=== PATIENT | male | born 1965 | race Two or more races ===

== ENCOUNTER 2024-05-14 06:15 | Inpatient (IN) | payer BC ==
[~2024-05-14] VITALS: Ht 175.3 cm; Wt 114.0 kg
[2024-05-14] MEDS: ceFAZolin 2 GM/D5W100ml 100 ML IV ONE (05:32)
[~2024-05-14 06:15] MED LIST: HYDR12.59 PO; LOSA-535 PO
[2024-05-14] MEDS: ROPIVACAINE 0.5% (5MG/ML) 20ML AMPULE IJ ONE (06:16)
[2024-05-14] MEDS ORDERED: MIDAZOLAM HCL 2MG/2ML 2ml VIAL (1mg/ml) ONE (06:20)
[2024-05-14] MEDS ORDERED: fentaNYL CITRATE 100 MCG/2 ML VL ONE (06:37)
[2024-05-14] MEDS ORDERED: PROPOFOL 10 MG/ML 20 ML IV ONE (06:37)
[2024-05-14] MEDS ORDERED: ROCURONIUM 10MG/ML 10ML VIAL IV ONE (08:02)
[2024-05-14] MEDS ORDERED: ONDANSETRON HCL 4 MG/2 ML VIAL ONE (08:13)
[2024-05-14] MEDS ORDERED: DexAMETHasone SOD PHOS 10MG/1ML VIAL INJ ONE ×2 (08:13→08:20)
[2024-05-14] MEDS ORDERED: SUGAMMADEX 200mg/2ml Vial (100MG/ML) IV ONE (08:35)
[2024-05-14] MEDS ORDERED: LIDOCAINE 2% (LOCAL ANESTH.) PF 5ml SDV ONE (08:39)
--- NOTE | 2024-05-14 09:19 | DVH ---
CLINICAL INDICATION: pain TECHNIQUE: 1 radiographic views of the right hip were obtained. Comparison: None FINDINGS/IMPRESSION: Status post right hip arthroplasty.
--- NOTE | 2024-05-14 09:43 | DVHOP2 ---
Operative Report - 2 Report Details Date: 05/14/24 Preop Diagnosis: Right hip degenerative arthritis Postop Diagnosis: Right hip degenerative arthritis Surgeon: Yohannes Javed MD Animal Keeper Head: Nissa PALACIOS Anesthesiologist: Taya Ricketts CRNA Anesthesia: Regional Drains: Aristeo closed wound suction Implant: DonJoy origin stem size 12, minus four neck length, 36 delta head, 52 acetabular shell with flat liner Consent: The patient was informed of the risks and benefits of the procedure. These include but are not limited to complications of anesthesia, postoperative infection, incomplete relief of symptoms, recurrence of symptoms, damage to blood vessels, nerves and tendons, deep venous thrombosis, pulmonary embolism and possible need for repeat surgery in the future. Complications: None Estimated Blood Loss: 250 cc Fluids: See anesthesia record Findings: Denuded cartilage with eburnated bone right hip Indications for Surgery: Right hip degenerative arthritis with severe pain and functional impairment despite nonoperative management Name of Procedure Performed Right total hip arthroplasty Procedure Details Procedure Details: The patient was brought to the operating room and given spinal anesthetic with adequate analgesia obtained. The patient was positioned lateral decubitus with the operative side up, stabilized with hip positioners. Axillary roll applied and lower extremities well-padded. Preop patient received IV Ancef, cefepime and IV tranexamic acid. Surgical timeout was performed verifying patient, laterality and procedure. The hip and lower extremity were prepped and draped in sterile fashion. Incision was made over the greater trochanter. Subcutaneous dissection and hemostasis were performed with Bovie and aqua mantis. I identified the fascia which was incised with Bovie and Charnley retractor inserted. I identified the gluteus medius that was split at the junction of its anterior and middle thirds with Bovie then incised off the anterior greater trochanter. I incised the anterior gluteus minimus which was elevated off the capsule. I elevated the reflected head of the rectus. I then performed anterior capsulectomy with Bovie. I extended capsular incision posterior medially and superior laterally. The head was dislocated. Femoral neck cut was made with saw and head removed. Head diameter was calipered on the back table. I adjusted retractors to expose the acetabulum. I circumferentially removed labral tissue with Bovie. I removed foveal tissue with Bovie, curette and rongeur. I then began reaming sequentially paying attention to inclination and version as I went. I trialed which was stable so acetabular implant was brought into the field and tapped into the acetabulum with good fixation achieved. I then brought up the flat liner which was spun to make sure there was no soft tissue entrapment then tapped in and stability verified. I then brought my attention to the proximal femur. The leg was placed in the sterile bag anteriorly. I cleaned up soft tissue at the greater trochanter shoulder with Bovie. I then used a rongeur to clip the lateral neck. I then used a box osteotome, canal finder and lateralizing rasp. I sequentially broached to size 12. I trialed with a [0] neck length and [36] head which was stable. Intraoperative AP pelvis x-ray was obtained to verify length, offset and implant size. The hip was dislocated. Neck and head trial removed. I revised the femoral neck cut with calcar planer. Broach was removed. I tapped in the femoral implant with good fixation achieved. I decided to use the minus four neck length based on x-rays. I 1st trialed with a minus four confirming stability. I cleaned and dried the Fowler taper and tapped on the ceramic head. I irrigated with xperience. I placed a 2 grams of vancomycin in the deep and superficial wound. I repaired the minimus and medius to the anterior greater trochanter with #[5] FiberWire in running fashion . I oversewed the repair with 0 Vicryl. I repaired the fascia with #1 Ethibond in terrupted [id number]. Deep subcutaneous tissue was closed with 0 Vicryl. Superficial subcutaneous tissue was closed with 2-0 Vicryl. The skin was closed with brigette. I then applied the Aristeo closed wound suction. Patient tolerated the procedure well and was brought to the recovery room in stable condition. Condition Stable Disposition Still a Patient YOHANNES JAVED MD May 14, 2024 09:43
[2024-05-14] MEDS ORDERED: ONDANSETRON HCL 4 MG/2 ML VIAL IV PRN (09:45)
[2024-05-14 09:57] VITALS: PULSE 65; RESP 14; O2SAT 100
[2024-05-14] MEDS: LOSARTAN POTASSIUM 50 MG TAB PO SCH (10:00)
[2024-05-14] MEDS ORDERED: HYDROmorphone HCL 2 MG/ML VL/or syr IV PRN (10:30)
[2024-05-14] MEDS ORDERED: ePHEDrine SULFATE 50 MG/ML AMP IV PRN (10:30)
[2024-05-14] MEDS: ONDANSETRON HCL 4 MG/2 ML VIAL IV ONE (10:30)
[2024-05-14] MEDS: METOCLOPRAMIDE HCL 5MG/ml INJ 2ml VIAL IV ONE (10:30)
[2024-05-14] MEDS ORDERED: fentaNYL CITRATE 100 MCG/2 ML VL IV PRN (10:30)
[2024-05-14] MEDS ORDERED: hydrALAZINE HCL 20 MG/ML VL IV PRN (10:30)
--- NOTE | 2024-05-14 10:37 | DVH ---
CLINICAL INDICATION: postop TECHNIQUE: 1 radiographic views of the l were obtained. Comparison: None FINDINGS/IMPRESSION: There is no evidence of acute fracture or dislocation. Status post right hip arthroplasty. 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
[2024-05-14] MEDS: ACETAMINOPHEN IV 1000 MG/100ML (10MG/ML) IV ONE (10:59)
[2024-05-14] MEDS: SODIUM CHLORIDE 0.9% 1,000 ML IV SCH (11:30)
[2024-05-14] MEDS: ACETAMINOPHEN 325 MG TAB PO SCH (12:00)
[2024-05-14] MEDS: KETOROLAC TROMETH 30 MG/ML 1ML VIAL IV SCH (12:00)
[2024-05-14] MEDS: oxyCODONE HCL 5MG TAB PO PRN (12:54)
[2024-05-14] MEDS: PREGABALIN 25 MG CAP PO SCH (13:23)
[2024-05-14] MEDS: ceFAZolin 2 GM/D5W50ml 50 ML IV SCH ×2 (14:04→23:35)
[2024-05-14 15:27] VITALS: BP 136/68; PULSE 102; RESP 19; TEMP 97.7; O2SAT 95
[2024-05-14 15:38] VITALS: BP 136/68; PULSE 102; PULSE 78; RESP 18; RESP 19; TEMP 97.7; O2SAT 95; O2SAT 97
[2024-05-14 17:00] VITALS: BP 147/76; PULSE 98; RESP 19; TEMP 97.9; O2SAT 95
[2024-05-14 21:00] VITALS: BP 107/60; PULSE 103; RESP 17; TEMP 99.2; O2SAT 95
[2024-05-15 01:00] VITALS: BP 117/64; PULSE 89; RESP 17; TEMP 98.7; O2SAT 95
[2024-05-15 05:00] VITALS: BP 122/67; PULSE 83; RESP 17; TEMP 98; O2SAT 95
[2024-05-15 06:21] LABS: Basophils # (auto) 0 10 ^3/uL (0-0.2); Eosinophils # (auto) 0 10 ^3/uL (0-0.8); Hematocrit 34.6 % (41.0-53.0); Hemoglobin 11.9 g/dL (13.5-17.5); Lymphocytes # (auto) 1.1 10 ^3/uL (0.4-5.4); Mean Corpuscular Hemoglobin 29.5 pg (28.0-32.0); Mean Corpuscular Hgb Conc. 34.4 g/dL (32.0-36.0); Mean Corpuscular Volume 85.7 fL (80.0-100.0); Monocytes # (auto) 0.7 10 ^3/uL (0-1.3); Monocytes % (auto) 5.4 % (0.0-12.0); Neutrophils # (auto) 11.6 10 ^3/uL (1.6-8.6); Neutrophils % (auto) 86.6 % (37.0-80.0); Platelet Count (auto) 203 10^3/uL (140-450); Red Blood Cells 4.04 10^6/uL (4.5-5.90); Red Cell Distribution Width 13.6 % (11.8-14.3); White Blood Cell 13.4 10^3/uL (4.4-10.8)
[2024-05-15 06:35] LABS: Potassium 4.3 mmol/L (3.5-5.1); Sodium 138 mmol/L (136-145)
[2024-05-15 06:36] LABS: Anion Gap 7 (5-15); Carbon Dioxide 24 mmol/L (20-31)
[2024-05-15 06:41] LABS: BUN/Creatinine Ratio 17.4 (10.0-20.0); Blood Urea Nitrogen 16 mg/dL (9-23)
[2024-05-15 06:46] LABS: Chloride 107 mmol/L (98-107); Glucose 170 mg/dL (74-106)
[2024-05-15 08:00] VITALS: PULSE 78; RESP 18; O2SAT 97
[2024-05-15] MEDS: APIXABAN 2.5 MG TAB PO SCH (09:12)
[2024-05-15] MEDS: oxyCODONE HCL 5MG TAB PO PRN (09:13)
[2024-05-15 09:30] VITALS: BP 143/77; PULSE 78; RESP 18; TEMP 98.6; O2SAT 97
--- NOTE | 2024-05-15 11:38 | DVHDS2 ---
Discharge Summary Date of Admission May 14, 2024 at 09:46 Date of Discharge: May 15, 2024 Labs/Diagnostic Data: Laboratory Results Test 05/15/24 04:16 White Blood Count 13.4 10^3/uL (4.4-10.8) Red Blood Count 4.04 10^6/uL (4.5-5.90) Hemoglobin 11.9 g/dL (13.5-17.5) Hematocrit 34.6 % (41.0-53.0) Mean Corpuscular Volume 85.7 fL (80.0-100.0) Mean Corpuscular Hemoglobin 29.5 pg (28.0-32.0) Mean Corpuscular Hemoglobin Concent 34.4 g/dL (32.0-36.0) Red Cell Distribution Width 13.6 % (11.8-14.3) Platelet Count 203 10^3/uL (140-450) Mean Platelet Volume 9.4 fL (6.9-10.8) Neutrophils (%) (Auto) 86.6 % (37.0-80.0) Lymphocytes (%) (Auto) 8.0 % (10.0-50.0) Monocytes (%) (Auto) 5.4 % (0.0-12.0) Eosinophils (%) (Auto) 0.0 % (0.0-7.0) Basophils (%) (Auto) 0.0 % (0.0-2.0) Neutrophils # (Auto) 11.6 10 ^3/uL (1.6-8.6) Lymphocytes # (Auto) 1.1 10 ^3/uL (0.4-5.4) Monocytes # (Auto) 0.7 10 ^3/uL (0-1.3) Eosinophils # (Auto) 0 10 ^3/uL (0-0.8) Basophils # (Auto) 0 10 ^3/uL (0-0.2) Nucleated Red Blood Cells 0.0 % Sodium Level 138 mmol/L (136-145) Potassium Level 4.3 mmol/L (3.5-5.1) Chloride Level 107 mmol/L (98-107) Carbon Dioxide Level 24 mmol/L (20-31) Anion Gap 7 (5-15) Blood Urea Nitrogen 16 mg/dL (9-23) Creatinine 0.92 mg/dL (0.700-1.30) Glomerular Filtration Rate Calc 96 mL/min (>90) BUN/Creatinine Ratio 17.4 (10.0-20.0) Serum Glucose 170 mg/dL (74-106) Calcium Level 9.0 mg/dL (8.7-10.4) Other Laboratory Tests 05/15/24 04:16 Brief Hx & Hospital Course: Patient was brought to the hospital yesterday to undergo a right total hip arthroplasty, he tolerated the procedure well without complications and was kept overnight for postoperative observation. Patient has remained medically stable denying any overnight events and reports some postoperative hip pain that is being well managed with the help of pain medication. Patient reports that he was able to get up and walk with the help of physical therapy and was able to get down to the nurse's station and back to his bed. Patient is otherwise feeling well denying any other complaints or concerns during my evaluation and would like to go home. Condition at Discharge: Stable Final Diagnosis/Problems List Right hip degenerative arthritis Discharge Disposition: Home Discharge Instruct/Medications Diet: Regular Activity: See Comment Activity comment: Advised patient to remain weight-bearing as tolerated with the assistance of a walker Follow Up/Referral: I instructed the patient to follow up with our office in 10-14 days for his 1st postoperative evaluation Medications: Rx sent via our outpatient EMR system Discharge Statement: "Patient was advised to return to the ER or call 911 if any headaches, dizziness, shortness of breath, chest pain, abdominal pain, bleeding, fevers, or worsening of medical condition. Patient was counseled about treatment plan, medications, possible side effects, patientverbalized understanding. All questions were answered to the best of my ability. This discharge took greater then 30 minutes in planning, reviewing documentation, counseling the patient, and discussing with other team members." ASSESSMENT ASSESSMENT Assessment Right hip degenerative arthritis ELLI PERKINS May 15, 2024 11:38
--- NOTE | 2024-05-15 11:42 | DVHPN2 ---
Progress Note - Dictate Date Seen: May 15, 2024 Medical Necessity Reason Pt with a Central, PICC or Fol: No Subjective Patient was lying comfortably in bed during my evaluation and reports some postoperative hip pain that is being well managed with the help of pain medication. Patient reports that he was able to get up and walk with the help of physical therapy and his walker and was able to get down to the nurse's station and back to his bed with minimal pain. Patient is otherwise feeling well denying any other complaints or concerns during my evaluation and would like to go home. vital signs Vital Sign Date Time Temp Pulse Resp B/P (MAP) Pulse Ox O2 Delivery O2 Flow Rate FiO2 05/15/24 11:30 98.2 05/15/24 09:30 78 18 143/77 (99) 97 05/15/24 08:00 Room Air* 0 21 Total Intake and Output 05/14/24 05/14/24 05/15/24 15:00 23:00 07:00 Intake Total 0 ml 850 ml Output Total 700 ml Balance 0 ml 150 ml medications Current Medications Medications Dose Ordered Sig/Sue Route Start Time Stop Time Status Last Admin Dose Admin Losartan Potassium 100 mg DAILY PO 05/14/24 10:00 05/15/24 09:12 100 MG Pregabalin 50 mg BID PO 05/14/24 10:00 05/15/24 09:12 50 MG Apixaban 2.5 mg BID PO 05/15/24 10:00 06/19/24 09:59 05/15/24 09:12 2.5 MG Sodium Chloride 1,000 ml @ 125 mls/hr Q8H IV 05/14/24 11:30 05/15/24 09:16 125 MLS/HR Acetaminophen 650 mg Q6HP PO 05/14/24 12:00 05/15/24 11:30 650 MG Ketorolac Tromethamine 15 mg Q6HR IV 05/14/24 12:00 05/19/24 11:59 05/15/24 11:30 15 MG Ondansetron HCl 4 mg Q4HP PRN IV 05/14/24 09:45 Oxycodone HCl 5 mg Q4HP PRN PO 05/14/24 11:30 05/14/24 12:54 5 MG Oxycodone HCl 10 mg Q4HP PRN PO 05/14/24 11:30 05/15/24 09:13 10 MG Cefazolin Sodium/ Dextrose 50 ml @ 50 mls/hr Q8HR IV 05/15/24 23:30 05/16/24 00:29 05/14/24 23:35 50 MLS/HR objective A&O x4 in no acute distress Hip range of motion grossly limited with pain on movement Aristeo dressing clean, dry, intact, and maintaining suction No distal edema or calf tenderness to palpation Neurovascularly intact with cap refill less than 2 seconds laboratory and microbiology Laboratory Tests 05/15/24 04:16 Test 05/15/24 04:16 Range/Units Serum Glucose 170 H 74-106 mg/dL Assessment/Plan Patient to be discharged home and advised to remain weight-bearing as tolerated with the assistance of a walker. I also shared with the patient to maintain his dressings clean, dry, intact, and maintaining suction to call our office if he has any questions or concerns. I advised the patient to follow up with our office in 10-14 days for his 1st postoperative evaluation. Rx sent via our outpatient EMR system. He understood and agreed. Plan discussed with: Patient ELLI PERKINS May 15, 2024 11:42
[2024-05-15 13:24] VITALS: BP 140/70; PULSE 90; RESP 18; TEMP 98.3; O2SAT 97
[2024-05-15 16:17] VITALS: BP 139/82; TEMP 36.8
== END 2024-05-15 17:30 | disposition home or self-care (01) | DRG 470 ==
LOC: SUR 06:15 → OVERFLOW 09:46 → WEST WING 15:40
PROVIDERS: ADMIT Orthopaedic Surgery; ATTEND Orthopaedic Surgery
PROC: 0SR90JZ Replacement of Right Hip Joint with Synthetic Substitute, Open Approach (ICD-10-PCS; principal; 2024-05-14 07:23)
DX: M16.11 Unilateral primary osteoarthritis, right hip (principal)
CPT/HCPCS: 36415; 72170; 73502; 80048; 85025; 86850; 86900; 86901; 97110; 97116; 97163; A4565; G0378; J0131; J1100; J1885; J2003; J2250; J2405; J2704

== ENCOUNTER 2025-02-04 08:23 | Inpatient (IN) | payer BC ==
[2025-02-04] VITALS (12 sets, daily range): BP systolic 121–137; BP diastolic 51–75; PULSE 76–97; RESP 12–18; TEMP 97.6–98; O2SAT 96–99
[~2025-02-04] VITALS: Ht 175.3 cm; Wt 111.0 kg
[~2025-02-04 08:23] MED LIST changes: +GLYCOPYRROLATE 0.2 MG/ML 1ML VIAL ONE; +KETAMINE 50mg/ML 1ml syringe ONE; +MIDAZOLAM HCL 2MG/2ML 2ml VIAL (1mg/ml) ONE; +ONDANSETRON HCL 4 MG/2 ML VIAL ONE; +PROPOFOL 10 MG/ML 20 ML IV ONE; +fentaNYL CITRATE 100 MCG/2 ML VL ONE
[2025-02-04] MEDS ORDERED: PROPOFOL 10 MG/ML 20 ML IV ONE (09:40)
[2025-02-04] MEDS ORDERED: fentaNYL CITRATE 5 ML ONE (09:40)
[2025-02-04] MEDS ORDERED: MEPERIDINE HCL (25 MG/ML) 1ML VIAL ONE (09:40)
[2025-02-04] MEDS ORDERED: ONDANSETRON HCL 4 MG/2 ML VIAL ONE (09:59)
[2025-02-04] MEDS: KETOROLAC TROMETH 30 MG/ML 1ML VIAL ONE ×2 (11:40→12:35)
[2025-02-04] MEDS: MORPHINE SULF PF 5 MG/10 ML VIAL ONE (11:40)
[2025-02-04] MEDS: BUPIVACAINE W/ EPINEPH 0.25% INJ 50ML MDV ONE (11:40)
[2025-02-04] MEDS: VANCOMYCIN HCL 1000 MG VL ONE (11:40)
--- NOTE | 2025-02-04 11:55 | DVH ---
Right HIP RADIOGRAPH. CLINICAL INDICATION: INTRAOP TECHNIQUE: 1 views of the left hip were obtained. FINDINGS: Left total hip arthroplasty IMPRESSION: Left total hip arthroplasty.
[2025-02-04] MEDS ORDERED: ONDANSETRON HCL 4 MG/2 ML VIAL IV PRN (12:00)
[2025-02-04] MEDS: KETOROLAC TROMETH 30 MG/ML 1ML VIAL IV SCH (12:00)
[2025-02-04] MEDS: ceFAZolin 2 GM/D5W50ml 50 ML IV ONE (12:36)
[2025-02-04] MEDS: TRANEXAMIC ACID 20 ML ONE (12:36)
[2025-02-04] MEDS: BUPIVACAINE 0.25% INJ 50ML VIAL ONE (12:36)
[2025-02-04] MEDS: CEFEPIME 1GM/50ML 50 ML IV ONE (12:37)
[2025-02-04] MEDS: ROPIVACAINE 0.5% (5MG/ML) 20ML AMPULE IJ ONE (12:37)
--- NOTE | 2025-02-04 12:51 | DVH ---
EXAM: XY PELVIS AP CLINICAL INDICATION: postop TECHNIQUE: XY PELVIS AP COMPARISON: XY PELVIS AP on DOS: 05/14/24, XR PELVIS 1-2 VIEW on DOS: 04/28/24 FINDINGS/IMPRESSION: There is no evidence of acute fracture or dislocation. Left hip artrhoplasty. Right hip artrhoplasty.
[2025-02-04] MEDS: SODIUM CHLORIDE 0.9% 1,000 ML IV SCH (13:10)
[2025-02-04] MEDS: ACETAMINOPHEN 325 MG TAB PO SCH (13:29)
--- NOTE | 2025-02-04 13:43 | DVHOP2 ---
Operative Report - 2 Report Details Date: 02/04/25 Preop Diagnosis: Left hip degenerative arthritis Postop Diagnosis: Left hip degenerative arthritis Surgeon: Yohannes Javed MD Projection Printer: Nissa PALACIOS Anesthesiologist: Sherry Anesthesia: General Drains: Aristeo closed wound suction Implant: Bonnie Z one stem size three, 36 ceramic head-3.5, 54 G7 cup, flat poly liner, acetabular cap Consent: The patient was informed of the risks and benefits of the procedure. These include but are not limited to complications of anesthesia, postoperative infection, incomplete relief of symptoms, recurrence of symptoms, damage to blood vessels, nerves and tendons, deep venous thrombosis, pulmonary embolism and possible need for repeat surgery in the future. Complications: None Estimated Blood Loss: 200 cc Fluids: See anesthesia record Findings: Denuded cartilage, eburnated bone, osteophytes Indications for Surgery: Left hip degenerative arthritis with severe pain and functional impairment despite nonoperative management Name of Procedure Performed Left total hip arthroplasty Procedure Details Procedure Details: The patient was brought to the operating room and given general anesthetic with adequate analgesia obtained. The patient was positioned lateral decubitus with the operative side up, stabilized with hip positioners. Axillary roll applied and lower extremities well-padded. Preop patient received IV Ancef, cefepime and IV tranexamic acid. Surgical timeout was performed verifying patient, laterality and procedure. The hip and lower extremity were prepped and draped in sterile fashion. Incision was made over the greater trochanter. Subcutaneous dissection and hemostasis were performed with Bovie and aqua mantis. I identified the fascia which was incised with Bovie and Charnley retractor inserted. I identified the gluteus medius that was split at the junction of its anterior and middle thirds with Bovie then incised off the anterior greater trochanter. I incised the anterior gluteus minimus which was elevated off the capsule. I elevated the reflected head of the rectus. I then performed anterior capsulectomy with Bovie. I extended capsular incision posterior medially and superior laterally. The head was dislocated. Femoral neck cut was made with saw and head removed. Head diameter was calipered on the back table. I adjusted retractors to expose the acetabulum. I circumferentially removed labral tissue with Bovie. I removed foveal tissue with Bovie, curette and rongeur. I then began reaming sequentially paying attention to inclination and version as I went. I trialed which was stable so acetabular implant was brought into the field and tapped into the acetabulum with good fixation achieved. I then brought up the flat liner which was spun to make sure there was no soft tissue entrapment then tapped in and stability verified. I then brought my attention to the proximal femur. The leg was placed in the sterile bag anteriorly. I cleaned up soft tissue at the greater trochanter shoulder with Bovie. I then used a rongeur to clip the lateral neck. I then used a box osteotome, canal finder and lateralizing rasp. I sequentially broached to size 3. I revised the femoral neck cut with calcar planer. I trialed with a [0 and -3.5] neck length and [36] head which was stable. Intraoperative AP pelvis x-ray was obtained to verify length, offset and implant size. The hip was dislocated. Neck and head trial removed. Broach was removed. I tapped in the femoral implant with good fixation achieved. I cleaned and dried the Fowler taper and tapped on the -3.5 neck/36 ceramic head. The hip was again reduced and tested for stability which was good. I irrigated with basiurge. I placed a 2 grams of vancomycin in the deep and superficial wound. I repaired the minimus and medius to the anterior greater trochanter with #[5] FiberWire in running fashion . I oversewed the repair with 0 Vicryl. I repaired the fascia with #1 Ethibond interrupted [id number]. Deep subcutaneous tissue was closed with 0 Vicryl. Superficial subcutaneous tissue was closed with 2-0 Vicryl. The skin was closed with brigette. I then applied the Aristeo closed wound suction. Patient tolerated the procedure well and was brought to the recovery room in stable condition. Condition Stable Disposition Still a Patient YOHANNES JAVED MD Feb 04, 2025 13:43
[2025-02-04] MEDS ORDERED: ceFAZolin 2 GM/D5W50ml 50 ML IV SCH (14:00)
[2025-02-04] MEDS: ceFAZolin 2 GM/D5W50ml 50 ML IV SCH (17:07)
[2025-02-05] MEDS: PREGABALIN 25 MG CAP PO SCH (00:03)
[2025-02-05 01:00] VITALS: BP 112/51; PULSE 90; RESP 18; TEMP 97.9; O2SAT 97
[2025-02-05 05:00] VITALS: BP 132/60; PULSE 84; RESP 17; TEMP 97.6; O2SAT 98
[2025-02-05] MEDS: LOSARTAN POTASSIUM 50 MG TAB PO SCH (06:11)
[2025-02-05 06:15] LABS: Hematocrit 34.5 % (41.0-53.0); Hemoglobin 11.9 g/dL (13.5-17.5); Mean Corpuscular Hemoglobin 29.5 pg (28.0-32.0); Mean Corpuscular Volume 85.8 fL (80.0-100.0); Nucleated Red Blood Cells % 0.0 %
[2025-02-05 06:16] LABS: Calcium 8.8 mg/dL (8.7-10.4); Potassium 4.3 mmol/L (3.5-5.1); Sodium 140 mmol/L (136-145)
[2025-02-05 06:17] LABS: Anion Gap 7 (5-15); Carbon Dioxide 24 mmol/L (20-31)
[2025-02-05 06:22] LABS: BUN/Creatinine Ratio 12.9 (10.0-20.0); Blood Urea Nitrogen 12 mg/dL (9-23)
[2025-02-05 06:26] LABS: Chloride 109 mmol/L (98-107); Glucose 180 mg/dL (74-106)
[2025-02-05 09:00] VITALS: BP 130/81; PULSE 87; RESP 17; TEMP 98; O2SAT 95
[2025-02-05] MEDS: APIXABAN 2.5 MG TAB PO SCH (09:34)
[2025-02-05 13:00] VITALS: BP 146/83; PULSE 87; RESP 17; TEMP 97.9; O2SAT 97
--- NOTE | 2025-02-05 14:58 | DVHDS2 ---
Discharge Summary Date of Admission Feb 04, 2025 at 11:28 Date of Discharge: Feb 05, 2025 Labs/Diagnostic Data: Laboratory Results Test 02/05/25 05:30 White Blood Count 16.0 10^3/uL (4.4-10.8) Red Blood Count 4.02 10^6/uL (4.5-5.90) Hemoglobin 11.9 g/dL (13.5-17.5) Hematocrit 34.5 % (41.0-53.0) Mean Corpuscular Volume 85.8 fL (80.0-100.0) Mean Corpuscular Hemoglobin 29.5 pg (28.0-32.0) Mean Corpuscular Hemoglobin Concent 34.4 g/dL (32.0-36.0) Red Cell Distribution Width 13.5 % (11.8-14.3) Platelet Count 184 10^3/uL (140-450) Mean Platelet Volume 8.5 fL (6.9-10.8) Neutrophils (%) (Auto) 85.7 % (37.0-80.0) Lymphocytes (%) (Auto) 6.7 % (10.0-50.0) Monocytes (%) (Auto) 7.5 % (0.0-12.0) Eosinophils (%) (Auto) 0.0 % (0.0-7.0) Basophils (%) (Auto) 0.1 % (0.0-2.0) Neutrophils # (Auto) 13.7 10 ^3/uL (1.6-8.6) Lymphocytes # (Auto) 1.1 10 ^3/uL (0.4-5.4) Monocytes # (Auto) 1.2 10 ^3/uL (0-1.3) Eosinophils # (Auto) 0 10 ^3/uL (0-0.8) Basophils # (Auto) 0 10 ^3/uL (0-0.2) Nucleated Red Blood Cells 0.0 % Sodium Level 140 mmol/L (136-145) Potassium Level 4.3 mmol/L (3.5-5.1) Chloride Level 109 mmol/L (98-107) Carbon Dioxide Level 24 mmol/L (20-31) Anion Gap 7 (5-15) Blood Urea Nitrogen 12 mg/dL (9-23) Creatinine 0.93 mg/dL (0.700-1.30) Glomerular Filtration Rate Calc 95 mL/min (>90) BUN/Creatinine Ratio 12.9 (10.0-20.0) Serum Glucose 180 mg/dL (74-106) Calcium Level 8.8 mg/dL (8.7-10.4) Other Laboratory Tests 02/05/25 05:30 Brief Hx & Hospital Course: Patient was brought to the hospital yesterday to undergo a left total hip arthroplasty. He tolerated the procedure well without complications and was kept overnight for postoperative observation. Patient has remained medically stable denying any overnight events and reports some postoperative hip pain that is being well managed with the help of pain medication. Patient reports that he was able to get up and walk with the help of physical therapy and his walker and was able to walk down the [place] and back to his room with some postoperative hip pain but felt stable. Patient was otherwise feeling well denying any other complaints or concerns during my evaluation and is ready to go home. Condition at Discharge: Stable Final Diagnosis/Problems List Left hip degenerative arthritis Discharge Disposition: Home Discharge Instruct/Medications Diet: Regular Activity: See Comment Activity comment: Patient to remain weight-bearing as tolerated with the assistance of a walker. Follow Up/Referral: I instructed the patient to follow up with our office in 10-14 days for his 1st postoperative evaluation. Medications: Rx sent via our outpatient EMR system Scheduled Hydrochlorothiazide (Hydrochlorothiazide), Unknown Dose PO DAILY, (Reported) Losartan Potassium (Losartan Potassium), 100 MG PO QAM, (Reported) Discharge Statement: "Patient was advised to return to the ER or call 911 if any headaches, dizziness, shortness of breath, chest pain, abdominal pain, bleeding, fevers, or worsening of medical condition. Patient was counseled about treatment plan, medications, possible side effects, patientverbalized understanding. All questions were answered to the best of my ability. This discharge took greater then 30 minutes in planning, reviewing documentation, counseling the patient, and discussing with other team members." ASSESSMENT ASSESSMENT Assessment Left hip degenerative arthritis ELLI PERKINS Feb 05, 2025 14:58
--- NOTE | 2025-02-05 15:00 | DVHPN2 ---
Progress Note - Dictate Date Seen: Feb 05, 2025 Medical Necessity Reason Pt with a Central, PICC or Fol: No Subjective Patient was lying comfortably in bed during my evaluation reports some postoperative hip pain that is being well managed with the help of pain medication. Patient reports that he was able to get up and walk with the help of physical therapy and his walker yesterday as well as today and was able to get down the [place] and back to his bed albeit with some postoperative hip pain but felt stable. Patient is otherwise feeling well denying any other complaints or concerns during my evaluation and is ready to go home. vital signs Vital Sign Date Time Temp Pulse Resp B/P (MAP) Pulse Ox O2 Delivery O2 Flow Rate FiO2 02/05/25 13:00 97.9 87 17 146/83 (104) 97 97.9 02/05/25 08:00 Nasal Cannula* 3 32 Total Intake and Output 02/04/25 02/04/25 02/05/25 15:00 23:00 07:00 Intake Total 250 ml 150 ml Balance 250 ml 150 ml medications Current Medications Medications Dose Ordered Sig/Sue Route Start Time Stop Time Status Last Admin Dose Admin Pregabalin 50 mg BID PO 02/04/25 22:00 02/05/25 09:34 50 MG Apixaban 2.5 mg BID PO 02/05/25 10:00 03/12/25 09:59 02/05/25 09:34 2.5 MG Sodium Chloride 1,000 ml @ 125 mls/hr Q8H IV 02/04/25 11:30 02/05/25 11:15 125 MLS/HR Acetaminophen 650 mg Q6HP PO 02/04/25 12:00 02/05/25 11:15 650 MG Ketorolac Tromethamine 15 mg Q6HR IV 02/04/25 12:00 02/09/25 11:59 02/05/25 11:15 15 MG Ondansetron HCl 4 mg Q4HP PRN IV 02/04/25 12:00 Oxycodone HCl 5 mg Q4HP PRN PO 02/04/25 11:30 Oxycodone HCl 10 mg Q4HP PRN PO 02/04/25 11:30 Losartan Potassium 100 mg QAM PO 02/05/25 07:00 02/05/25 06:11 100 MG objective A&O x4 in no acute distress Hip range of motion grossly limited with pain on movement Aristeo dressing clean, dry, intact, and maintaining suction No distal edema or calf tenderness to palpation Neurovascularly intact with cap refill less than 2 seconds laboratory and microbiology Laboratory Tests 02/05/25 05:30 Test 02/05/25 05:30 Range/Units Serum Glucose 180 H 74-106 mg/dL Assessment/Plan Patient to be discharged home and advised to remain weight-bearing as tolerated with the assistance of a walker and to maintain his dressings clean, dry, intact, and maintaining suction and to call our office if she has any further questions or concerns. I also advised the patient to follow up with our office in 10-14 days for his 1st postoperative evaluation. Rx sent via our outpatient EMR system. Patient understood and agreed. Plan discussed with: Patient ELLI PERKINS Feb 05, 2025 15:00
[2025-02-05 15:29] VITALS: BP 120/69; PULSE 87; RESP 17; TEMP 98; O2SAT 95
== END 2025-02-05 17:00 | disposition home or self-care (01) | DRG 470 ==
LOC: SUR 08:23 → OVERFLOW 11:28 → WEST WING 15:14
PROVIDERS: ADMIT Orthopaedic Surgery; ATTEND Orthopaedic Surgery
PROC: 0SRB04Z Replacement of Left Hip Joint with Ceramic on Polyethylene Synthetic Substitute, Open Approach (ICD-10-PCS; principal; 2025-02-04 09:42)
DX: M16.12 Unilateral primary osteoarthritis, left hip (principal)
CPT/HCPCS: 36415; 72170; 73501; 80048; 85025; 86850; 86900; 86901; 97163; G0378; J1100; J1885; J2250; J2405; J2704; J3490